=== PATIENT | female | born 1955 | race Caucasian/White ===

== ENCOUNTER → 2017-01-07 | Outpatient (CLI) | payer OTHER | LOC: FIMAGING 08:17 | PROVIDERS: ATTEND Internal Medicine | DX: Z12.31 Encounter for screening mammogram for malignant neoplasm of breast (principal) | CPT/HCPCS: G0202 ==

== ENCOUNTER → 2017-01-12 | Outpatient (CLI) | payer OTHER | LOC: CIMAGING 09:19 | PROVIDERS: ATTEND Internal Medicine | DX: J98.4 Other disorders of lung (principal); F32.9 Major depressive disorder, single episode, unspecified; E03.9 Hypothyroidism, unspecified | CPT/HCPCS: 71250-PO ==